=== PATIENT | male | born 1990 | race African-American/Black ===

== ENCOUNTER 2019-03-27 15:01 | Emergency (ER) | payer OTHER ==
[2019-03-27] MEDS: KETOROLAC 30 MG INJ IM (15:19)
[2019-03-27] MEDS: DIPHTH/TET/ACEL PERTUSS (ADULT) 0.5 ML VIAL IM* (16:14)
== END 2019-03-27 16:40 | disposition home or self-care (01) ==
LOC: FTE 16:40
DX: S01.111A Laceration without foreign body of right eyelid and periocular area, initial encounter (principal); W21.05XA Struck by basketball, initial encounter; Y92.310 Basketball court as the place of occurrence of the external cause; Z23 Encounter for immunization
CPT/HCPCS: 12013; 90471; 90715; 96372; 99284-25

== ENCOUNTER 2019-04-01 13:54 | Emergency (ER) | payer OTHER | END 2019-04-01 14:31 | disposition home or self-care (01) | LOC: FTE 13:54 | DX: Z48.00 Encounter for change or removal of nonsurgical wound dressing (principal) | CPT/HCPCS: 99281; Z7502 ==

== ENCOUNTER 2019-04-06 11:00 | Emergency (ER) | payer OTHER | END 2019-04-06 11:54 | disposition home or self-care (01) | LOC: FTE 11:54 | DX: Z48.02 Encounter for removal of sutures (principal) | CPT/HCPCS: 99281; Z7502 ==